=== PATIENT | female | born 1985 | race Caucasian/White ===

== ENCOUNTER 2018-10-05 16:41 | Emergency (ER) | payer SELFPAY ==
[~2018-10-05] VITALS: Ht 167.6 cm; Wt 77.1 kg
[2018-10-05 20:46] VITALS: BP 145/87
[2018-10-06] MEDS ORDERED: CARISOPRODOL 350 MG TAB PO ONE (01:15)
== END 2018-10-05 20:52 | disposition home or self-care (01) ==
LOC: ER 16:45
DX: S13.9XXA Sprain of joints and ligaments of unspecified parts of neck, initial encounter (principal); S09.90XA Unspecified injury of head, initial encounter; H92.02 Otalgia, left ear; R07.89 Other chest pain; Z88.6 Allergy status to analgesic agent; V43.52XA Car driver injured in collision with other type car in traffic accident, initial encounter; Y93.89 Activity, other specified; Y99.8 Other external cause status; Y92.410 Unspecified street and highway as the place of occurrence of the external cause
CPT/HCPCS: 70450; 71250; 72125; 73120